=== PATIENT | male | born 1945 | race Hispanic/Latino ===

== ENCOUNTER 2017-08-12 14:28 | Emergency (ER) | payer OTHER ==
[~2017-08-12 14:28] MED LIST: CARB1TAB20 PO; INSU100I13 SQ; INSU10VI4 SQ; LEVO125T11 PO; LOVA10TA2 PO; METO-409 PO; RIFA550T PO; [UNRECOGNIZED DRUG - OTHER] PO
[2017-08-12] MEDS ORDERED: DEXTROSE 25%-WATER 2.5 GM/10 ML SYG [INFANT] IVP ONE (17:04)
[2017-08-12] MEDS ORDERED: DEXTROSE 50%-WATER 50 ML DISP.SYRIN IV ONE (17:05)
[2017-08-12] MEDS ORDERED: DEXTROSE 10%-WATER 1,000 ML IV ONE (17:08)
[2017-08-12 17:57] LABS: BASOPHILS % (AUTO) 0.2 % (0.0-5.0); HEMATOCRIT 36.4 % (42-54); MEAN CORPUSCULAR HEMOGLOBIN 33.8 pg (27.0-33.0); MEAN CORPUSCULAR VOLUME 99.5 fL (79-99); NEUTROPHILS % (AUTO) 43.2 % (40.0-77.0); NUCLEATED RED BLOOD CELLS 0.1 % (0.0-0.19); PLATELET COUNT (AUTO) 147 K/uL (130-400); RED BLOOD CELL COUNT(AUTO) 3.66 MIL/uL (4.50-6.20); RED CELL DISTRIBUTION WIDTH 13.7 % (11.0-15.5); WHITE BLOOD COUNT (AUTO) 6.2 K/uL (4.8-10.8)
[2017-08-12 18:21] LABS: POTASSIUM 4.7 mmol/L (3.5-5.1)
[2017-08-12 18:25] LABS: APPEARANCE,URINE Clear (CLEAR); BILIRUBIN,URINE Negative (NEGATIVE); COLOR,URINE Yellow (YELLOW); GLUCOSE, URINE (UA) Negative (NEGATIVE); KETONES,URINE Negative (NEGATIVE); LEUKOCYTE ESTERASE ,URINE Negative (NEGATIVE); NITRATE,URINE Negative (NEGATIVE); OCCULT BLOOD,URINE Negative (NEGATIVE); PROTEIN,URINE Negative (NEGATIVE); UROBILINOGEN,URINE 0.2 mg/dL (0.2-1.0)
[2017-08-12 18:28] LABS: MONOCYTES % (AUTO) 22.6 % (3.0-13.0)
[2017-08-12 18:35] LABS: ALBUMIN 2.5 g/dL (3.5-5.0); BILIRUBIN,TOTAL 0.4 mg/dL (0.2-1.0); TOTAL PROTEIN, SERUM 6.2 g/dL (6.0-8.3)
[2017-08-12 19:04] LABS: INR 1.03 (0.85-1.15); PROTHROMBIN TIME 10.8 SEC (9.6-11.6)
== END 2017-08-12 19:57 | disposition home or self-care (01) ==
LOC: EDH 14:28
DX: S09.8XXA Other specified injuries of head, initial encounter (principal); T38.3X5A Adverse effect of insulin and oral hypoglycemic [antidiabetic] drugs, initial encounter; E11.9 Type 2 diabetes mellitus without complications; I10 Essential (primary) hypertension; K74.60 Unspecified cirrhosis of liver; G20 Parkinson's disease; Z95.1 Presence of aortocoronary bypass graft; W01.0XXA Fall on same level from slipping, tripping and stumbling without subsequent striking against object, initial encounter; Y93.89 Activity, other specified; Y92.89 Other specified places as the place of occurrence of the external cause; Y99.8 Other external cause status
CPT/HCPCS: 36415; 70450; 71010; 72125; 80053; 81003; 82140; 82550; 82553; 82948 ×4; 85025; 85610; 85730; 93005; 96361; 96374; 99285; J3490 ×2; J7070

== ENCOUNTER 2018-01-18 09:20 | Day surgery (SDC) | payer OTHER ==
[~2018-01-18] VITALS: Ht 167.6 cm; Wt 72.4 kg
[~2018-01-18 09:20] MED LIST changes: +SODIUM CHLORIDE 0.9% 1000ML 1,000 ML IV ONE
[2018-01-18 09:45] VITALS: BP 96/46
[2018-01-18] MEDS ORDERED: METFORMIN (10:17)
[2018-01-18] MEDS ORDERED: PROPOFOL 10 MG/ML 20ML VIAL IV ONE ×2 (10:53)
[2018-01-18 11:07] VITALS: BP 119/86
[2018-01-18] MEDS ORDERED: EPHEDRINE SULFATE 50 MG/ML AMPULE ONE (11:23)
== END 2018-01-18 11:55 | disposition home or self-care (01) ==
LOC: ENDO 09:20 → DAH 09:20 → ENDO 11:55
PROVIDERS: ATTEND Internal Medicine Gastroenterology
DX: K29.50 Unspecified chronic gastritis without bleeding (principal); K29.80 Duodenitis without bleeding; E78.5 Hyperlipidemia, unspecified; E11.9 Type 2 diabetes mellitus without complications; I25.10 Atherosclerotic heart disease of native coronary artery without angina pectoris; K74.60 Unspecified cirrhosis of liver; I10 Essential (primary) hypertension; G20 Parkinson's disease; Z95.1 Presence of aortocoronary bypass graft
CPT/HCPCS: 43239; 82948 ×2; 88305; 88312; 93005; A4606; J2704 ×2; J3490; J7030

== ENCOUNTER → 2018-10-10 | Outpatient (CLI) | payer OTHER ==
[~2018-10-10] MED LIST changes: +INSU100V33 SQ; -INSU10VI4 SQ; -SODIUM CHLORIDE 0.9% 1000ML 1,000 ML IV ONE
== END | disposition home or self-care (01) ==
LOC: RAH 08:26
PROVIDERS: ATTEND Internal Medicine Gastroenterology
DX: K72.90 Hepatic failure, unspecified without coma (principal); J90 Pleural effusion, not elsewhere classified; Z90.49 Acquired absence of other specified parts of digestive tract
CPT/HCPCS: 76700; 93975

== ENCOUNTER → 2019-05-23 | Outpatient (CLI) | payer OTHER | END | disposition home or self-care (01) | LOC: RAH 08:21 | PROVIDERS: ATTEND Internal Medicine Gastroenterology | DX: J90 Pleural effusion, not elsewhere classified (principal); N28.1 Cyst of kidney, acquired; K74.69 Other cirrhosis of liver | CPT/HCPCS: 76700; 93975 ==

== ENCOUNTER 2019-09-18 07:05 | Day surgery (SDC) | payer OTHER ==
[2019-09-18] VITALS (7 sets, daily range): BP systolic 83–122; BP diastolic 38–71
[~2019-09-18 07:05] MED LIST changes: +FURO20TA4 PO; +PANT40TA25 PO
[2019-09-18] MEDS ORDERED: SODIUM CHLORIDE 0.9% 1000ML 1,000 ML IV ONE (08:51)
[2019-09-18] MEDS ORDERED: PROPOFOL 10 MG/ML 20ML VIAL IV ONE (10:09)
--- NOTE | 2019-09-18 11:30 | NUR ---
PT. LEFT VIA WHEELCHAIR IN PVT CAR ..PT. V/S ARE STABLE D/C INSTRUCTIONS AND F/U GIVEN TO FAMILY MEMBER.
== END 2019-09-18 11:30 | disposition home or self-care (01) ==
LOC: ENDO 07:05 → DAH 07:05 → ENDO 11:30
PROVIDERS: ATTEND Internal Medicine
DX: K74.69 Other cirrhosis of liver (principal); K29.50 Unspecified chronic gastritis without bleeding; K31.89 Other diseases of stomach and duodenum; E78.5 Hyperlipidemia, unspecified; E11.22 Type 2 diabetes mellitus with diabetic chronic kidney disease; I25.10 Atherosclerotic heart disease of native coronary artery without angina pectoris; N18.9 Chronic kidney disease, unspecified; K21.9 Gastro-esophageal reflux disease without esophagitis; E66.9 Obesity, unspecified; F17.210 Nicotine dependence, cigarettes, uncomplicated; G20 Parkinson's disease; Z79.899 Other long term (current) drug therapy; Z68.26 Body mass index [BMI] 26.0-26.9, adult; Z79.4 Long term (current) use of insulin; Z95.1 Presence of aortocoronary bypass graft; Z98.890 Other specified postprocedural states; Z82.49 Family history of ischemic heart disease and other diseases of the circulatory system; Z83.3 Family history of diabetes mellitus; Z82.3 Family history of stroke
CPT/HCPCS: 36415; 43239; 82948 ×2; 84132; 88305; 93005; A4215; A4221; A4222; A4223; A4606; A4615; A4663; J2704; J7030

== ENCOUNTER 2019-10-26 20:09 | Observation (INO) | payer OTHER ==
[~2019-10-26] VITALS: Ht 160 cm; Wt 83.0 kg
[~2019-10-26 20:09] MED LIST changes: -PANT40TA25 PO; +PANT40TA54 PO
[2019-10-26 21:31] LABS: BASOPHILS % (AUTO) 0.2 % (0.0-5.0); EOSINOPHILS % (AUTO) 2.9 % (0.0-8.0); HEMATOCRIT 36.4 % (42-54); LYMPHOCYTES % (AUTO) 23.9 % (21.0-51.0); MEAN CORPUSCULAR HEMOGLOBIN 30.6 pg (27.0-33.0); MEAN CORPUSCULAR HGB CONC 31.6 g/dL (32.0-36.0); MEAN CORPUSCULAR VOLUME 96.8 fL (79-99); NEUTROPHILS % (AUTO) 49.8 % (40.0-77.0); PLATELET COUNT (AUTO) 146 K/uL (130-400); RED BLOOD CELL COUNT(AUTO) 3.76 MIL/uL (4.50-6.20); RED CELL DISTRIBUTION WIDTH 17.4 % (11.0-15.5); WHITE BLOOD COUNT (AUTO) 4.5 K/uL (4.8-10.8)
[2019-10-26 21:46] LABS: CARBON DIOXIDE 30 mmol/L (21-32); CHLORIDE 107 mmol/L (101-111); CREATININE 2.6 mg/dL (0.5-1.5); GLOMERULAR FILTR. RATE CALC 26 mL/min (>60); GLUCOSE,RANDOM 174 mg/dL (70-105); POTASSIUM 3.5 mmol/L (3.5-5.1); SODIUM SERUM 143 mmol/L (136-145); UREA NITROGEN, BLOOD 36 mg/dL (7-18)
[2019-10-26 21:51] LABS: ASPARTATE AMINOTRANSFERASE 37 U/L (10-37); BILIRUBIN,TOTAL 0.8 mg/dL (0.2-1.0); TOTAL PROTEIN, SERUM 6.8 g/dL (6.0-8.3)
[2019-10-26 21:57] LABS: ALANINE AMINOTRANSFERASE < 6 U/L (12-78)
[2019-10-26 22:21] LABS: B-TYPE NATRIURETIC PEPTIDE 4200 pg/mL (0-100)
[2019-10-26] MEDS ORDERED: ASPIRIN 81MG TAB.CHEW ONE (23:27)
[2019-10-26] MEDS ORDERED: FUROSEMIDE 10 MG/ML 4ML VIAL ONE (23:27)
[2019-10-27] VITALS (7 sets, daily range): BP systolic 116–162; BP diastolic 55–86
[2019-10-27] MEDS ORDERED: BENZ200C53 PO (00:54)
[2019-10-27] MEDS ORDERED: ASPI-556 PO (00:54)
[2019-10-27] MEDS ORDERED: METO25TA6 PO (00:54)
[2019-10-27] MEDS ORDERED: FURO-151 PO (00:54)
[2019-10-27] MEDS ORDERED: CLOP75TA32 PO (00:54)
[2019-10-27] MEDS ORDERED: LEVO125T11 PO (00:54)
[2019-10-27] MEDS: FUROSEMIDE 10 MG/ML 2ML VIAL IVP SCH ×3 (08:19→16:34)
--- NOTE | 2019-10-27 11:30 | NUR ---
[facility] consult Patient assessed as ordered. Ulcers noted to lower extremities; scrotum with small area of excoriation. Allevyn life foam in place on sacral area. [facility] recommendations submitted per protocol. Addendum: 10/27/19 at 1226 by KELLIE WARD RN/ Amended: Links added.
[2019-10-27 12:33] LABS: INR 1.07 (0.85-1.15); PARTIAL THROMBOPLASTIN TIME 29.9 SEC (26.3-35.5); PROTHROMBIN TIME 11.5 SEC (9.6-11.6)
--- NOTE | 2019-10-27 12:42 | NUR ---
DR MORRISSEY PAGED REGARDING INABILITY TO DO THORACENTESIS WITHOUT RECENT H/P. NOT ABLE TO LEAVE MESSAGE-MAILBOX FULL. WILL CALL AGAIN. PENDING CB
[2019-10-27] MEDS: HONEY 1 APPL/ML TUBE TP SCH (13:00)
--- NOTE | 2019-10-27 13:00 | NUR ---
DR MORRISSEY PAGED REGARDING SAME ISSUE. PENDING CB
--- NOTE | 2019-10-27 13:30 | NUR ---
SENT MESSAGE TO DR MORRISSEY REGARDING SAME ISSUE
--- NOTE | 2019-10-27 14:36 | NUR ---
THORA/IR/H/P PER DR MÉNDEZ - PROCEDURE WILL HAVE TO BE RESCHEDULED R/T NO RESPONSE FROM DR MORRISSEY. DR MORRISSEY MADE AWARE
[2019-10-27] MEDS ORDERED: LIDOCAINE HCL-MPF 1% 2ML VIAL IV PRN (16:00)
[2019-10-27] MEDS ORDERED: POTASSIUM CHLORIDE 20MEQ/100ML 100 ML IV PRN (16:00)
[2019-10-27] MEDS ORDERED: GLUCAGON 1MG KIT 1 MG ML IM PRN (16:00)
[2019-10-27] MEDS ORDERED: POTASSIUM CHLORIDE 10% ELIXIR 20 MEQ/15 ML UDCUP PO PRN (16:00)
[2019-10-27] MEDS ORDERED: POTASSIUM CHLORIDE 20 MEQ ERTAB PO PRN (16:00)
[2019-10-27] MEDS: FUROSEMIDE 40 MG TABLET PO SCH (16:47)
--- NOTE | 2019-10-27 19:00 | NUR ---
INITIAL INTERVIEWED PT AT BEDSIDE BUT CONFUSED AND UNABLE TO PROVIDE INFORMATION. SPOKE TO SON LISA OVER THE PHONE CONCERNING PT. PT LIVES WITH SON AND DAUGHTER IN [place] HAS PROVIDER . 40 HRS WEEK, HAS HANDICAPPED BATHROOM AND ROLLING WALKER THAT HE USES ALL THE TIME . PROVIDER FOR BATHING AND DRESSING. LAST MD APPOINTMENT 2 WEEKS AGO. DCP IS HOME, LISA TO PROVIDE TRANSPORT CM TO FOLLOW Addendum: 10/28/19 at 0942 by SHERRI ELENA RN CM Amended: Links added.
[2019-10-27] MEDS: RIFAXIMIN 550 MG TABLET PO SCH (20:59)
[2019-10-27] MEDS: BENZONATATE 100 MG CAPSULE PO SCH (20:59)
[2019-10-27] MEDS: CARBIDOPA-LEVODOPA 25-100 TAB PO SCH (20:59)
[2019-10-27] MEDS: METOPROLOL TARTRATE 25 MG TAB PO SCH (20:59)
[2019-10-27] MEDS: LACTULOSE 20 GM/30 ML UDCUP PO SCH (21:00)
[2019-10-27] MEDS: LOVASTATIN 10 MG PO SCH (21:00)
[2019-10-28 03:00] VITALS: BP 159/91
[2019-10-28 05:32] LABS: BASOPHILS % (AUTO) 0.2 % (0.0-5.0); EOSINOPHILS % (AUTO) 2.1 % (0.0-8.0); HEMATOCRIT 35.3 % (42-54); MEAN CORPUSCULAR HEMOGLOBIN 30.7 pg (27.0-33.0); MEAN CORPUSCULAR VOLUME 95.9 fL (79-99); NEUTROPHILS % (AUTO) 44.5 % (40.0-77.0); PLATELET COUNT (AUTO) 154 K/uL (130-400); RED BLOOD CELL COUNT(AUTO) 3.68 MIL/uL (4.50-6.20); RED CELL DISTRIBUTION WIDTH 17.1 % (11.0-15.5); WHITE BLOOD COUNT (AUTO) 5.3 K/uL (4.8-10.8)
[2019-10-28 05:49] LABS: B-TYPE NATRIURETIC PEPTIDE 3740 pg/mL (0-100)
[2019-10-28 05:55] LABS: ALBUMIN 1.9 g/dL (3.5-5.0); CREATININE 2.6 mg/dL (0.5-1.5); POTASSIUM 3.7 mmol/L (3.5-5.1); TOTAL PROTEIN, SERUM 6.6 g/dL (6.0-8.3)
[2019-10-28] MEDS: LEVOTHYROXINE 125 MCG TABLET PO SCH (06:47)
[2019-10-28 07:30] VITALS: BP 148/79
[2019-10-28] MEDS: INSULIN HUMULIN 70/30 100 UNIT/ML 3ML SQ SCH (07:43)
--- NOTE | 2019-10-28 08:51 | NUR ---
H AND P/THORA STILL NO H&P. PLACED CALL TO DR MORRISSEY, NO ANSWER. LEFT MESSAGE REGARDING NEED FOR H&P IN ORDER TO SCHEDULE THORACENTESIS
[2019-10-28] MEDS: RIFAXIMIN 550 MG TABLET PO SCH ×2 (08:52→20:27)
[2019-10-28] MEDS: FUROSEMIDE 40 MG TABLET PO SCH (08:52)
[2019-10-28] MEDS: CLOPIDOGREL BISULFATE 75 MG TAB PO SCH (08:52)
[2019-10-28] MEDS: ASPIRIN 81 MG EC TAB PO SCH (08:52)
[2019-10-28] MEDS: BENZONATATE 100 MG CAPSULE PO SCH ×3 (08:53→20:26)
[2019-10-28] MEDS: HONEY 1 APPL/ML TUBE TP SCH (08:53)
[2019-10-28] MEDS: LACTULOSE 20 GM/30 ML UDCUP PO SCH ×3 (08:53→20:29)
[2019-10-28] MEDS: CARBIDOPA-LEVODOPA 25-100 TAB PO SCH ×3 (08:53→20:26)
[2019-10-28] MEDS: METOPROLOL TARTRATE 25 MG TAB PO SCH ×2 (08:53→20:26)
[2019-10-28 11:00] VITALS: BP 145/86
--- NOTE | 2019-10-28 11:53 | NUR ---
H AND P NOW IN CHART HOUSE DOMONIQUE BURDICK RN MADE AWARE. STATED SHE WILL CONTACT IR AND CALL BACK FOR [facility]
--- NOTE | 2019-10-28 11:55 | NUR ---
CHA PER REBEL/CAMACHO WILSON WILL DO PROCEDURE IN AM O R/T "NONEMERGENT", VS STABLE AND PT NOT IN DISTRESS. PT AND FAMILY MADE AWARE OF THIS
--- NOTE | 2019-10-28 12:00 | NUR ---
PT CONDITION THIS NURSE AND IT APPLICATIONS MANAGER WERE ATTEMPTING TO SIT PT AT SIDE OF BED- PT BECAME SHORT OF BREATH AND USING ACCESSORY MUSCLES DURING RESPIRATIONS. O2 SAT 97 ON 2L VIA NC. WE THEN LAID PT BACK IN BED TO WHICH HE BECAME MORE AT EASE. PT STATED HE FELT FINE. DR MORRISSEY PAGED TO BE MADE AWARE
--- NOTE | 2019-10-28 12:30 | NUR ---
DR MORRISSEY MADE AWARE OF PT CONDITION. STATED START LASIX 40 IV Q 12. OK TO DO THORAENTESIS IN AM. NOTED AND CARRIED OUT
[2019-10-28 16:00] VITALS: BP 172/83
[2019-10-28] MEDS: FUROSEMIDE 10 MG/ML 4ML VIAL IV SCH (16:28)
[2019-10-28] MEDS: DEXTROSE 50%-WATER 50 ML DISP.SYRIN IV PRN (16:29)
[2019-10-28] MEDS: LOVASTATIN 10 MG PO SCH (20:35)
[2019-10-28 21:02] VITALS: BP 146/71
[2019-10-29] VITALS (9 sets, daily range): BP systolic 125–160; BP diastolic 56–85
[2019-10-29] MEDS: FUROSEMIDE 10 MG/ML 4ML VIAL IV SCH ×2 (05:14→16:12)
[2019-10-29] MEDS: DEXTROSE 50%-WATER 50 ML DISP.SYRIN IV PRN (05:15)
[2019-10-29 05:37] LABS: BASOPHILS % (AUTO) 0.2 % (0.0-5.0); EOSINOPHILS % (AUTO) 2.5 % (0.0-8.0); HEMATOCRIT 34.3 % (42-54); LYMPHOCYTES % (AUTO) 21.4 % (21.0-51.0); MEAN CORPUSCULAR HEMOGLOBIN 30.6 pg (27.0-33.0); MEAN CORPUSCULAR HGB CONC 30.9 g/dL (32.0-36.0); MEAN CORPUSCULAR VOLUME 99.1 fL (79-99); MONOCYTES % (AUTO) 24.8 % (3.0-13.0); NEUTROPHILS % (AUTO) 50.9 % (40.0-77.0); PLATELET COUNT (AUTO) 153 K/uL (130-400); RED BLOOD CELL COUNT(AUTO) 3.46 MIL/uL (4.50-6.20); RED CELL DISTRIBUTION WIDTH 17.4 % (11.0-15.5); WHITE BLOOD COUNT (AUTO) 4.9 K/uL (4.8-10.8)
--- NOTE | 2019-10-29 05:45 | NUR ---
GLUCOSE AT 44, ADMINISTERED 1 AMP D50. PATIENT EASILY AWOKE TO TACTILE STIMULI. STAT RANDOM LAB ORDERED, WILL CONT TO MONITOR CLOSELY.
--- NOTE | 2019-10-29 05:49 | NUR ---
RECHECK GLUCOSE AT 94
[2019-10-29 05:52] LABS: INR 1.11 (0.85-1.15); PARTIAL THROMBOPLASTIN TIME 30.2 SEC (26.3-35.5); PROTHROMBIN TIME 11.9 SEC (9.6-11.6)
[2019-10-29] MEDS: LEVOTHYROXINE 125 MCG TABLET PO SCH (06:10)
[2019-10-29] MEDS: INSULIN HUMULIN 70/30 100 UNIT/ML 3ML SQ SCH (06:10)
[2019-10-29 06:52] LABS: ALBUMIN 1.7 g/dL (3.5-5.0); BILIRUBIN,TOTAL 0.7 mg/dL (0.2-1.0); CREATININE 2.7 mg/dL (0.5-1.5); POTASSIUM 3.5 mmol/L (3.5-5.1); TOTAL PROTEIN, SERUM 5.9 g/dL (6.0-8.3)
[2019-10-29 07:24] LABS: B-TYPE NATRIURETIC PEPTIDE 2170 pg/mL (0-100)
--- NOTE | 2019-10-29 09:15 | NUR ---
U/S GD LT THORACENTESIS PROCEDURE PERFORMED BY DR Jamar MONTAGUE. PUNCTURE SITE LT POSTERIOR BACK AND PATIENT TOLERATED PROCEDURE WELL. TOTAL REMOVED 1.5 LITERS OF CLEAR YELLOW FLUID. END OF PROCEDURE AT 0900. CATHETER REMOVED AND DRESSING APPLIED. NO BLEEDING NOTED. POST CHEST X-RAY TAKEN AND READ BY DR Jamar MONTAGUE. NO PNEUMOTHORAX SEEN. REPORT GIVEN TO Norma JULIEN RN AND PATIENT TRANSPORTED TO [facility] VIA BED AT 0915. AAO X3 WITH NO C/O PAIN.
[2019-10-29] MEDS: BENZONATATE 100 MG CAPSULE PO SCH ×2 (10:22→13:51)
[2019-10-29] MEDS: CARBIDOPA-LEVODOPA 25-100 TAB PO SCH ×2 (10:22→13:50)
[2019-10-29] MEDS: RIFAXIMIN 550 MG TABLET PO SCH (10:22)
[2019-10-29] MEDS: ASPIRIN 81 MG EC TAB PO SCH (10:23)
[2019-10-29] MEDS: LACTULOSE 20 GM/30 ML UDCUP PO SCH ×2 (10:23→13:51)
[2019-10-29] MEDS: CLOPIDOGREL BISULFATE 75 MG TAB PO SCH (10:23)
[2019-10-29] MEDS: HONEY 1 APPL/ML TUBE TP SCH (10:24)
[2019-10-29] MEDS: METOPROLOL TARTRATE 25 MG TAB PO SCH (10:25)
[2019-10-29] MEDS ORDERED: FURO40SO PO (16:33)
--- NOTE | 2019-10-29 17:00 | NUR ---
DISCHARGE DISCHARGE INSTRUCTIONS GIVEN TO PATIENT'S SON LISA OVER THE PHONE. PATIENT IS BEING TAKEN HOME BY HIS PROVIDER. NO NEW PRESCRIPTIONS GIVEN HOWEVER HIS LASIX HAS BEEN INCREASED TO 40MG PO BID, PATIENTS SON VERBALIZED UNDERSTANDING. PATIENT IS TO FOLLOW UP WITH DR MORRISSEY ON TUESDAY. IV HAS BEEN REMOVED AND TELEPAK REMOVED.
== END 2019-10-29 17:20 | disposition home or self-care (01) ==
LOC: EDH 20:09 → EDHIP 22:58 → 3BH 23:53
PROVIDERS: ADMIT Internal Medicine; ATTEND Internal Medicine
DX: J90 Pleural effusion, not elsewhere classified (principal); I13.0 Hypertensive heart and chronic kidney disease with heart failure and stage 1 through stage 4 chronic kidney disease, or unspecified chronic kidney disease; E11.22 Type 2 diabetes mellitus with diabetic chronic kidney disease; N18.9 Chronic kidney disease, unspecified; I50.9 Heart failure, unspecified; I25.5 Ischemic cardiomyopathy; I25.10 Atherosclerotic heart disease of native coronary artery without angina pectoris; I25.2 Old myocardial infarction; G20 Parkinson's disease; K74.60 Unspecified cirrhosis of liver; Z79.4 Long term (current) use of insulin
CPT/HCPCS: 32555; 36415 ×4; 71045 ×2; 80053 ×3; 82947; 82948 ×13; 83880 ×3; 84484; 85025 ×3; 85610 ×2; 85730 ×2; 93005; 96372; 96374; 96376 ×3; 99291; A4215; G0378 ×3; J1815; J1940 ×6; J7070 ×2